=== PATIENT | male | born 1945 | race Hispanic/Latino ===

== ENCOUNTER 2016-09-29 10:45 | Outpatient (CLI) | payer MEDICARE ==
[2016-09-29 11:21] LABS: Hematocrit 31.5 % (42.0-52.0)
[2016-09-29 11:56] LABS: Anion Gap 12 mmol/L (10-20); BUN (Urea Nitrogen) 46 mg/dL (8.4-25.7); Calc. Creatinine Clearance 0 mL/min (70-130); Calcium 8.2 mg/dL (7.8-10.44); Carbon Dioxide 18 mmol/L (23-31); Chloride 116 mmol/L (98-107); Estimated GFR-MDRD 21
[2016-09-29 17:35] LABS: Iron 58 ug/dL (65-175); Phosphorus 3.7 mg/dL (2.3-4.7)
== END 2016-09-29 10:46 | disposition home or self-care (01) ==
LOC: BURLAB 10:45
PROVIDERS: ATTEND Internal Medicine Nephrology
DX: N18.4 Chronic kidney disease, stage 4 (severe) (principal)
CPT/HCPCS: 36415; 80048; 82570; 83540; 83550; 84100; 84156; 85014; 85018

== ENCOUNTER 2016-11-17 12:03 | Outpatient (CLI) | payer MEDICARE ==
[2016-11-17 12:54] LABS: #Basophils 0.1 thou/uL (0.0-0.2); #Eosinphils 0.2 thou/uL (0.0-0.7); #Lymphocytes 0.9 thou/uL (1.20-3.40); #Monocytes 0.4 thou/uL (0.11-0.59); #Neutrophils 4.8 thou/uL (1.40-6.50); %Basophils 0.9 % (0.0-1.0); %Eosinophils 3.2 % (0.0-10.0); %Lymphocytes 13.4 % (21.0-51.0); %Monocytes 6.7 % (0.0-10.0); %Neutrophils 75.8 % (42.0-75.0); Hemoglobin 10.9 g/dL (14.0-18.0); Mean Corpuscular HGB CONC 34.2 g/dL (32.0-36.0); Mean Corpuscular Hemoglobin 31.2 pg (27.0-31.0); Mean Corpuscular Volume 91.3 fl (80.0-94.0); Mean Platelet Volume 7.4 fL (7.4-10.4); Platelet Count 132 thou/uL (130-400); RBC Distribution Width 14.2 % (11.5-14.5); White Blood Cell (WBC) Count 6.4 thou/uL (4.8-10.8)
[2016-11-17 12:55] LABS: ALT (SGPT) 16 U/L (0-55); AST (SGOT) 12 U/L (5-34); Albumin 4.2 g/dL (3.4-4.8); Alkaline Phosphatase 113 U/L (40-150); Anion Gap 14 mmol/L (10-20); BUN (Urea Nitrogen) 50 mg/dL (8.4-25.7); Bilirubin, Total 0.8 mg/dL (0.2-1.2); Calc. Creatinine Clearance 0 mL/min (70-130); Calcium 8.4 mg/dL (7.8-10.44); Carbon Dioxide 15 mmol/L (23-31); Chloride 120 mmol/L (98-107); Estimated GFR-MDRD 21; Globulin 2.6 g/dL (2.4-3.5); Glucose 87 mg/dL (83-110); Lipase 77 U/L (8-78); Potassium 5.7 mmol/L (3.5-5.1); Protein, Total 6.8 g/dL (5.8-8.1); Sodium 143 mmol/L (136-145)
[2016-11-17 14:00] LABS: Hemoglobin A1c 5.8 % (4.0-6.0)
== END 2016-11-17 12:04 | disposition home or self-care (01) ==
LOC: HPCALD 12:03
PROVIDERS: ATTEND Family Medicine
DX: E11.22 Type 2 diabetes mellitus with diabetic chronic kidney disease (principal); N18.9 Chronic kidney disease, unspecified; R10.13 Epigastric pain
CPT/HCPCS: 36415; 80053; 83036; 83690; 84443; 85025

== ENCOUNTER 2016-11-17 12:16 | Outpatient (CLI) | payer MEDICARE ==
--- NOTE | 2016-11-17 21:58 | CT ---
CT ABDOMEN AND PELVIS WITHOUT CONTRAST: Date: 11-17-[address] of the abdomen and pelvis was performed using oral contrast only. No IV contrast was given due to the patient's renal status. Axial slices were acquired then coronal reconstructions were don e. FINDINGS: Bilateral pleural effusions are present, greater on the right than on the left. The etiology is unkn own. There appear to be a few calcified nodes in the lower mediastinal regions. The liver, spleen, pancreas, and adrenal glands showed no acute findings. There has been a prior cho lecystectomy. The kidneys show multiple rounded masses suggestive of cyst. There is no hydronephrosi s. There is probably a parapelvic cyst in the right kidney. The overall appearance is not much diffe rent than the 01-19-16 CT. The major organs all appeared intact. The aorta was normal in caliber. The patient has had a prior AP resection with an ileostomy. Only small bowel remains which remains w hich is nondistended. No free air or free fluid was seen. There is no inflammatory change around bow el. CT of the pelvis showed no pelvic masses or inflammatory changes. The urinary bladder is small and c ontracted with thick brown. The prostate is enlarged. IMPRESSION: 1. Bilateral pleural effusions, right greater than left. 2. No acute abdominal or pelvic findings. POS: HOME
== END 2016-11-17 12:17 | disposition home or self-care (01) ==
LOC: BURCT 12:16
PROVIDERS: ATTEND Family Medicine
DX: E11.22 Type 2 diabetes mellitus with diabetic chronic kidney disease (principal); J90 Pleural effusion, not elsewhere classified
CPT/HCPCS: 36415; 74176; 80053; 83036; 83690; 84443; 85025

== ENCOUNTER 2016-12-24 10:38 | Outpatient (CLI) | payer MEDICARE ==
[2016-12-24 11:14] LABS: Hemoglobin 11.5 g/dL (14.0-18.0)
[2016-12-24 11:31] LABS: Calc. Creatinine Clearance 0 mL/min (70-130); Estimated GFR-MDRD 18; Potassium 4.5 mmol/L (3.5-5.1)
== END 2016-12-24 10:39 | disposition home or self-care (01) ==
LOC: BURLAB 10:38
PROVIDERS: ATTEND Internal Medicine Nephrology
DX: E11.22 Type 2 diabetes mellitus with diabetic chronic kidney disease (principal); I12.9 Hypertensive chronic kidney disease with stage 1 through stage 4 chronic kidney disease, or unspecified chronic kidney disease; N18.3 Chronic kidney disease, stage 3 (moderate); E55.9 Vitamin D deficiency, unspecified; R80.9 Proteinuria, unspecified
CPT/HCPCS: 36415; 82565; 84132; 85014; 85018; 86334; 86335

== ENCOUNTER 2017-02-26 16:04 | Outpatient (CLI) | payer MEDICARE ==
[2017-02-26 16:29] LABS: Anion Gap 15 mmol/L (10-20); BUN (Urea Nitrogen) 44 mg/dL (8.4-25.7); Calc. Creatinine Clearance 0 mL/min (70-130); Calcium 8.3 mg/dL (7.8-10.44); Carbon Dioxide 17 mmol/L (23-31); Chloride 114 mmol/L (98-107); Estimated GFR-MDRD 16; Glucose 204 mg/dL (83-110); Potassium 4.7 mmol/L (3.5-5.1); Sodium 141 mmol/L (136-145)
== END 2017-02-26 16:05 | disposition home or self-care (01) ==
LOC: BURLAB 16:04
PROVIDERS: ATTEND Internal Medicine Nephrology
DX: N18.4 Chronic kidney disease, stage 4 (severe) (principal)
CPT/HCPCS: 36415; 80048

== ENCOUNTER 2017-03-26 14:32 | Outpatient (CLI) | payer MEDICARE ==
[2017-03-26 14:48] LABS: Hemoglobin 10.4 g/dL (14.0-18.0)
[2017-03-26 15:03] LABS: Anion Gap 13 mmol/L (10-20); BUN (Urea Nitrogen) 46 mg/dL (8.4-25.7); Calc. Creatinine Clearance 0 mL/min (70-130); Calcium 8.4 mg/dL (7.8-10.44); Carbon Dioxide 19 mmol/L (23-31); Chloride 113 mmol/L (98-107); Estimated GFR-MDRD 17; Glucose 78 mg/dL (83-110); Potassium 4.8 mmol/L (3.5-5.1); Sodium 140 mmol/L (136-145)
== END 2017-03-26 14:33 | disposition home or self-care (01) ==
LOC: BURLAB 14:32
PROVIDERS: ATTEND Internal Medicine Nephrology
DX: N18.4 Chronic kidney disease, stage 4 (severe) (principal)
CPT/HCPCS: 36415; 80048; 85014; 85018

== ENCOUNTER 2017-04-02 15:29 | Emergency (ER) | payer MEDICARE ==
[2017-04-02] MEDS ORDERED: Fentanyl 100 MCG/2 ML VIAL ONE (15:47)
--- NOTE | 2017-04-02 18:00 | RAD ---
RIGHT WRIST THREE VIEWS 04/02/17 There was some slight irregularities of cortex of the distal radius, and there is abundant soft tiss ue swelling dorsally over it. I am a bit suspicious of an impacted fracture of the distal radius, bu t the findings are not conclusive. I would treat him as such, then neo-ray in 7 to 10 days. The carpal bones all appeared intact. No fractures were seen otherwise. IMPRESSION: Question of impacted fracture of the distal radius. Followup films recommended. POS: HOME
== END 2017-04-02 17:27 | disposition home or self-care (01) ==
LOC: BURERS 15:29
DX: S52.501A Unspecified fracture of the lower end of right radius, initial encounter for closed fracture (principal); E11.9 Type 2 diabetes mellitus without complications; I12.9 Hypertensive chronic kidney disease with stage 1 through stage 4 chronic kidney disease, or unspecified chronic kidney disease; N18.4 Chronic kidney disease, stage 4 (severe); Z79.4 Long term (current) use of insulin; Z79.899 Other long term (current) drug therapy; Z85.038 Personal history of other malignant neoplasm of large intestine; W01.0XXA Fall on same level from slipping, tripping and stumbling without subsequent striking against object, initial encounter
CPT/HCPCS: 29125; 96374; J3010

== ENCOUNTER 2017-04-20 14:41 | Outpatient (CLI) | payer MEDICARE ==
--- NOTE | 2017-04-20 20:32 | RAD ---
RIGHT WRIST THREE VIEWS: Date: 04-20-17 Comparison: 04-02-17 FINDINGS: This study confirms that there indeed was a subtle impacted fracture of the distal radius. There is no displacement. It is in the process of healing. Also better seen on this study is that there is a fracture through the very tip of the ulnar styloid process, not clearly evident before. The carpal r elations are normal. IMPRESSION: Confirmation of healing of impacted fracture at the distal radius and tiny fracture at the tip of th e ulnar styloid. POS: HOME
== END 2017-04-20 14:42 | disposition home or self-care (01) ==
LOC: BURRAD 14:41
PROVIDERS: ATTEND Family Medicine
DX: S52.501D Unspecified fracture of the lower end of right radius, subsequent encounter for closed fracture with routine healing (principal)

== ENCOUNTER 2017-11-18 09:52 | Outpatient (CLI) | payer MEDICARE ==
--- NOTE | 2017-11-19 07:29 | ULT ---
BILATERAL RENAL ULTRASOUND: 11/18/17 Ultrasonography of the urinary tract was performed for evaluation of renal cysts seen on CT exam. The right kidney measures 10.7 x 5.1 x 4.6 cm. Its cortex is rather echogenic suggesting renal parenc hymal disease. There is no hydronephrosis. In the mid pelvic region of this kidney, there is either a cluster of smaller cysts or one larger complex cyst that collectively measures 2.9 cm in length. In the lower pole there is another cyst measuring 3.1 cm that is simple in nature. The left kidney measures 11.2 x 4.7 x 4.3 cm. A 2.4 cm simple cyst is seen within it. There is no obstruction of either kidney. While both kidney cortices are somewhat echogenic, the righ t kidney seems a little more so. The patient's prostate is enlarged and irregular and bulges into the floor of the bladder. It measure s about 5.3 x 3.9 x 4.0 cm. A digital exam would be encouraged given the slightly irregular borders. No other abnormalities were seen within the urinary bladder or its brown. IMPRESSION: 1. Slightly echogenic kidneys, right more than left. This is sometimes a sign of renal parenchym al disease. 2. Either a small cluster of cysts in the pelvic region of the right kidney or one larger comple x cyst. Total size is 2.9 cm. There is also a 3.1 cm cyst in the lower pole of this kidney. 3. 2.4 cm simple cyst, left kidney. 4. Large somewhat irregular prostate. Further examination encouraged. POS: HOME
== END 2017-11-18 09:53 | disposition home or self-care (01) ==
LOC: BURULT 09:52
PROVIDERS: ATTEND Urology
DX: E13.9 Other specified diabetes mellitus without complications (principal); N28.1 Cyst of kidney, acquired; N28.89 Other specified disorders of kidney and ureter
CPT/HCPCS: 76770

== ENCOUNTER 2018-04-08 11:21 | Outpatient (CLI) | payer MEDICARE ==
[2018-04-08 17:45] LABS: Hemoglobin 10.1 g/dL (14.0-18.0)
[2018-04-08 18:17] LABS: Anion Gap 13 mmol/L (10-20); BUN (Urea Nitrogen) 58 mg/dL (8.4-25.7); Calc. Creatinine Clearance 0 mL/min (70-130); Calcium 7.8 mg/dL (7.8-10.44); Carbon Dioxide 18 mmol/L (23-31); Chloride 115 mmol/L (98-107); Estimated GFR-MDRD 11; Glucose 182 mg/dL (83-110); Iron 72 ug/dL (65-175); Iron Binding Capacity, Total 305 mcg/dL (261-462); Potassium 4.7 mmol/L (3.5-5.1); Sodium 141 mmol/L (136-145)
--- NOTE | 2018-04-08 18:31 | RAD ---
CHEST TWO VIEWS: 04/08/18 Comparison is made with the 07/09/16 study. Cardiomegaly is about the same as before. There is no vascular congestion, edema, or pleural effusion . There is a nonspecific nodular density in the right base just above the diaphragm. I do not see it with assurance on the 01/19/16 CT scan. Thus, I am not sure if it is old scarring or not. There is burton e basilar scarring before. The lungs are otherwise clear. They are mildly hyperexpanded. IMPRESSION: Small 6 mm nodular density in the right lung base not definitely present on a prior study. While this could easily be a benign entity, one may wish to get an elective CT scan of the chest to assess it f hermelindo. Code T POS: HOME
== END 2018-04-08 11:22 | disposition home or self-care (01) ==
LOC: BURRAD 11:21
PROVIDERS: ATTEND Family Medicine
DX: R09.89 Other specified symptoms and signs involving the circulatory and respiratory systems (principal); N18.4 Chronic kidney disease, stage 4 (severe); D63.1 Anemia in chronic kidney disease; D50.9 Iron deficiency anemia, unspecified; R80.9 Proteinuria, unspecified; R53.83 Other fatigue; R53.1 Weakness; R91.8 Other nonspecific abnormal finding of lung field
CPT/HCPCS: 36415; 71046; 80048; 83540; 83550; 84156; 85014; 85018

== ENCOUNTER 2018-05-24 15:02 | Outpatient (CLI) | payer MEDICARE ==
--- NOTE | 2018-05-25 07:32 | RAD ---
ACUTE ABDOMEN SERIES: 05/24/2018 FINDINGS: Supine and erect films show no free air beneath the diaphragm. The gas pattern is nonspecific with g as seen in large and small bowel; however, there were no greatly distended loops to suggest obstructi on. Vascular calcifications are seen throughout. A right upper quadrant clip suggests a prior marina cystectomy. Degenerative changes are seen in the spine. The chest film in the series is compared with a 04/08/2018 study. There is a new finding, consisting of an infiltrate in the right lower lobe, as well as a small effusion. Pneumonia is presumed. This area was clear before. The nodular density seen previously is not currently visible. There is a li ttle streaking in the lingula on the left, but I am not convinced of an acute infiltrate here as of y et. IMPRESSION: 1. Nonspecific abdominal findings. No sign of obstruction. 2. New right lower lobe infiltrate, suggesting pneumonia. POS: HOME
== END 2018-05-24 15:03 | disposition home or self-care (01) ==
LOC: BURRAD 15:02
PROVIDERS: ATTEND Family Medicine
DX: R10.13 Epigastric pain (principal); R91.8 Other nonspecific abnormal finding of lung field
CPT/HCPCS: 74022